=== PATIENT | female | born 1940 | race Caucasian/White ===

== ENCOUNTER 2017-02-04 13:57 | Emergency (ER) | payer OTHER ==
[~2017-02-04] VITALS: Ht 147.3 cm; Wt 54.0 kg
[~2017-02-04 13:57] MED LIST: ASCORBIC ACID500 M3 PO; BISAC-EVAC10 MG PR; CALCIUM 600 MG1 EAC1 PO; CALCIUM CARB1 TABLET PO; CIPROFLOXACIN500 M1 PO; COLACE100 MG PO; DOCUSATE SODIU100 MG PO; FOLIC ACID1 MG PO; HEPARIN SO5000 UNITS SC; HYDROCODON-ACE1 EAC7 PO; LEVOTHYROXINE100 MCG PO; LEVOTHYROXINE125 MCG PO; LIDOCAINE700 MG TD; MULTI-DAY VITA1 EACH PO; OXYCODONE HCL5 MG PO; PANTOPRAZOLE SO40 MG PO; POLYETHYLENE GL17 GM PO; PROZAC10 MG PO; SENNA-TIME S T1 EACH PO; SYNTHROID100 MCG PO; THERAGRAN1 TABLET PO; TYLENOL REGULA325 MG PO; VICODIN 5-3001 EACH PO; ZOFRAN ODT4 MG PO; ZOFRAN4 MG PO
[2017-02-04 15:22] LABS: CHLORIDE 109 mEq/L (99-109); POTASSIUM 3.5 mEq/L (3.7-5.4); SODIUM 143 mEq/L (136-147)
[2017-02-04 15:23] LABS: GLUCOSE 101 mg/dL (70-99)
[2017-02-04 15:25] LABS: ANION GAP 10 MEQ/L (2-14)
[2017-02-04 15:27] LABS: GFR ESTIMATE (CALCULATED) > 59 mL/min/
[2017-02-04 15:28] LABS: UREA NITROGEN (BUN) 11 mg/dL (9-23)
[2017-02-04 15:51] LABS: ADD MIUA? YES; BILIRUBIN NEGATIVE; BLOOD LARGE; COLOR AMBER ((YELLOW)); GLUCOSE (STRIP) NEGATIVE; KETONES 5; LEUKOCYTES LARGE; NITRITE NEGATIVE; PROTEIN (STRIP) 100; SPECIFIC GRAVITY 1.026 (1.000-1.030)
[2017-02-04 16:12] LABS: EPITHELIAL CELLS NONE SEEN /HPF; MUCUS 2+ /LPF; WHITE BLOOD CELLS TNTC /HPF (0-5)
[2017-02-04 16:13] LABS: BACTERIA RARE /HPF; CASTS NONE SEEN /LPF; CRYSTALS NONE SEEN
[2017-02-04] MEDS ORDERED: KEFLEX500 MG PO (17:18)
[2017-02-04] MEDS ORDERED: PYRIDIUM100 MG PO (17:18)
[2017-02-04 17:38] VITALS: BP 104/88
== END 2017-02-04 17:39 | disposition home or self-care (01) ==
LOC: EME 13:57
PROVIDERS: Physician Assistant
DX: N39.0 Urinary tract infection, site not specified (principal); F03.90 Unspecified dementia, unspecified severity, without behavioral disturbance, psychotic disturbance, mood disturbance, and anxiety
CPT/HCPCS: 80048; 81003; 87077; 87086; 87186; 99281; 99284

== ENCOUNTER 2018-03-24 14:21 | Emergency (ER) | payer OTHER ==
[~2018-03-24] VITALS: Ht 162.6 cm; Wt 62.9 kg
[~2018-03-24 14:21] MED LIST changes: +KEFLEX500 MG PO; +PYRIDIUM100 MG PO
[2018-03-24 15:23] LABS: APPEARANCE SL.HAZY ((CLEAR)); BILIRUBIN SMALL; BLOOD MODERATE; COLOR YELLOW ((YELLOW)); GLUCOSE (STRIP) NEGATIVE; KETONES NEGATIVE; LEUKOCYTES LARGE; NITRITE NEGATIVE; PROTEIN (STRIP) 100; SPECIFIC GRAVITY 1.036 (1.000-1.030)
[2018-03-24 15:42] LABS: BACTERIA RARE /HPF; EPITHELIAL CELLS RARE /HPF; MUCUS 2+ /LPF; RED BLOOD CELLS TNTC /HPF (0-5); UCUL ADDED? YES; WHITE BLOOD CELLS TNTC /HPF (0-5)
[2018-03-24 16:06] LABS: HEMATOCRIT 35.1 % (36.0-46.0); HEMOGLOBIN 11.9 G/DL (11.9-15.5); MCH 30.7 PG (29.0-34.0); MCHC 33.9 G/DL (30.0-36.0); MCV 90.7 FL (83-99); NRBC (%) 0.2 /100 WBC (0-0); PLATELET COUNT 225 K/uL (156-360); RBC DIS.WIDTH-CV 12.5 % (11.8-14.6); RBC DIS.WIDTH-SD 40.7 % (39-53); RED BLOOD COUNT 3.87 M/uL (3.80-5.20); WHITE BLOOD COUNT 9.8 K/uL (4.1-10.2)
[2018-03-24 16:17] LABS: PTT 25.6 SEC (25-37)
[2018-03-24 16:19] LABS: CHLORIDE 108 MEQ/L (99-109); POTASSIUM 3.7 MEQ/L (3.7-5.4); SODIUM 145 MEQ/L (136-147)
[2018-03-24 16:25] LABS: CREATININE 0.6 MG/DL (0.6-1.3); GFR ESTIMATE (CALCULATED) > 59 mL/min/; GLUCOSE 108 mg/dL (70-99); UREA NITROGEN (BUN) 22 mg/dL (9-23)
[2018-03-24 16:29] LABS: TROP-I INTERPRETATION NEGATIVE; TROPONIN-I 0.01 ng/mL (0.0-0.30)
[2018-03-24] MEDS ORDERED: KEFLEX500 MG PO (16:50)
[2018-03-24 17:06] VITALS: BP 139/58
== END 2018-03-24 17:08 | disposition home or self-care (01) ==
LOC: EME 14:21
PROVIDERS: Nurse Practitioner Family
DX: G30.9 Alzheimer's disease, unspecified (principal); F02.81 Dementia in other diseases classified elsewhere, unspecified severity, with behavioral disturbance; N39.0 Urinary tract infection, site not specified; F32.9 Major depressive disorder, single episode, unspecified; Z90.49 Acquired absence of other specified parts of digestive tract
CPT/HCPCS: 70450; 71046; 80048; 81003; 84484; 85027; 85610; 85730; 87077; 87086 GA; 87186; 93005; 99281; 99285; J0696